=== PATIENT | female | born 2000 | race Caucasian/White ===

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

== ENCOUNTER 2021-02-19 12:50 | Emergency (ER) | payer OTHER, SELFPAY ==
[2021-02-19 14:58] VITALS: BP 00/00; PULSE 0; RESP 0; TEMP -17.7; TEMP 0
== END 2021-02-19 15:10 | disposition left against medical advice (07) ==
LOC: UTC 12:53
PROVIDERS: Emergency Provider Nurse Practitioner Family; PCP Nurse Practitioner Family
DX: Z53.21 Procedure and treatment not carried out due to patient leaving prior to being seen by health care provider (principal)

== ENCOUNTER 2021-05-19 17:39 | Emergency (ER) | payer OTHER, SELFPAY ==
[2021-05-19 18:39] VITALS: BP 130/85; PULSE 76; RESP 16; TEMP 36.8; O2SAT 96; BMI 38.2
--- NOTE | 2021-05-19 18:58 | HMH.EDUTC ---
[facility] [place] Impression: Viral syndrome, Viral pharyngitis Disposition: Home, Self-Care Condition on Discharge: Good Instructions: DI for COVID-19 (Suspected or Confirmed ), Preventing the Spread of Coronavirus Discharge Instructions Additional Instructions: Drink plenty of fluids. Take tylenol or ibuprofen for pain or fever. Take the medications as directed. Follow up with your regular doctor. GO TO THE ER FOR ANY WORSENING SYMPTOMS Quarantine until you know the results of your covid-19 test. Notify your school or workplace of your results and follow their instructions regarding return to work/school. Prescriptions: Brompheniramine/Pseudoephed/Dm [Bromfed Dm Cough Syrup] 5 ml PO Q6HP PRN #240 ml PRN Reason: Cough Transmission Status: Received by [facility] Ondansetron [Zofran 4mg ODT] 4 mg PO Q8HP PRN #20 tab PRN Reason: Nausea Transmission Status: Received by [facility] Referrals: Jon Galan APRN [Primary Care Provider] - Forms: Work/School Release Time of Disposition: 19:12 Medical Decision Making - Medical Records Medical records reviewed: No: I reviewed the patient's medical records. - Hang Inquiry Pt receiving controlled substance: No Vital Signs: 05/19/21 18:39 Temperature 98.2 F Temperature Source Oral Pulse Rate [Left] 76 Respiratory Rate 16 Blood Pressure [Right Arm] 130/85 Blood Pressure Mean [Right Arm] 100 02 Sat by Pulse Oximetry 96 - Lab Data Lab results reviewed: Yes: I reviewed the patient's lab results. Orders (Tests/Meds): ORDERS Category Date Time Status Covid-19 Nasal PCR ([facility]) Routine Lab 05/19/21 18:38 [place] [facility] [place] - General Stated complaint: covid test/treated for symptoms Time Seen by Provider: 05/19/21 18:58 Mode of Arrival: Ambulatory Source of Information: Patient Limitations: No Limitations Description of Symptoms (Recalled from Triage Doc. by RN): pt c/o a sore throat, cough, stomach ache and myalgia. x2 days HEENT Symptoms (Recalled from RN notes): Yes (sore throat) Resp Symptoms (Recalled from RN notes): Yes (cough) Skin Symptoms (Recalled from RN notes): No MS Symptoms (Recalled from RN notes): No Functional Status (Recalled from RN notes): wnl - History of Present Illness Provider Complaint: She states that for the past 2 days she has had chills, body aches, nausea, diarrhea, and she has felt bad. She was exposed to covid-19 about 5 days ago. - Related Data Previous Rx's Medication Instructions Recorded norgestimate 0.25 mg-ethinyl 1 tab PO DAILY #28 tab 12/25/20 estradiol 35 mcg tablet Brompheniramine/Pseudoephed/Dm 5 ml PO Q6HP PRN #240 ml 05/19/21 [Bromfed Dm Cough Syrup] Ondansetron [Zofran 4mg ODT] 4 mg PO Q8HP PRN #20 tab 05/19/21 Allergies Allergy/AdvReac Type Severity Reaction Status Date / Time No Known Allergies Allergy Verified 12/25/20 11:09 - Worker's Comp Is this a Worker's Comp case?: No [facility] History - Hepatitis A Screen Drug use history?: No High risk sexual behaviors?: No History of sexually transmitted infection?: No Currently employed?: No Childcare worker?: No Do you have indoor plumbing?: Yes Do you have electricity?: Yes Attestation statement:: This patient has been screened for Hepatitis A risk factors. I have reviewed the patient's past medical history: Yes Medical History: Reports:: Anxiety, Depression Denies:: Cancer, Diabetes Mellitus Type 1, Diabetes Mellitus Type 2, MRSA Other Medical History: Reports: Other Comment: PCOS Laterality Cases: Bilateral: Tonsillectomy Amputation: No Fractures: Yes (broken toe) Comment: toe fracture - Social History Smoking Status: Current every day smoker Tobacco Type: cigarettes # Packs/Day (cigarettes): 1 Alcohol Intake: never Substance Use Type: marijuana Occupational Status: employed Housing: house Household Members: family - Psychiatric History Pschychiatri
[2021-05-19 19:54] VITALS: BP 130/85; PULSE 76; RESP 16; TEMP 36.8
== END 2021-05-19 19:55 | disposition home or self-care (01) ==
PROVIDERS: Emergency Provider Nurse Practitioner Family; PCP Nurse Practitioner Family
DX: U07.1 COVID-19 (principal); J02.9 Acute pharyngitis, unspecified; F41.8 Other specified anxiety disorders; F17.210 Nicotine dependence, cigarettes, uncomplicated
CPT/HCPCS: 99202; C9803; G0463; U0003; U0005

== ENCOUNTER → 2021-05-25 14:42 | Outpatient (CLI) | payer OTHER, SELFPAY | PROVIDERS: PCP Nurse Practitioner Family; Visit Provider Nurse Practitioner Family | DX: U07.1 COVID-19 (principal) | CPT/HCPCS: C9803; U0003; U0005 ==

== ENCOUNTER 2021-08-20 11:37 | Emergency (ER) | payer OTHER, SELFPAY ==
[2021-08-20 12:56] VITALS: BP 150/66; PULSE 50; RESP 16; TEMP 36.7; O2SAT 100; BMI 46.9
--- NOTE | 2021-08-20 13:05 | HMH.EDUTC ---
[facility] [place] Clinical Impression: Right lower quadrant abdominal pain Disposition: Still a Patient Condition on Discharge: Fair Referrals: Jon Galan APRN [Primary Care Provider] - Medical Decision Making - Medical Records Medical records reviewed: No: I reviewed the patient's medical records. - Hang Inquiry Pt receiving controlled substance: No Vital Signs: 08/20/21 12:56 Temperature 98.1 F Temperature Source Oral Pulse Rate [Left] 50 L Respiratory Rate 16 Blood Pressure [Right Arm] 150/66 H Blood Pressure Mean [Right Arm] 94 02 Sat by Pulse Oximetry 100 [facility] [place] - General Stated complaint: vomiting, stomach pains Time Seen by Provider: 08/20/21 13:05 Mode of Arrival: Ambulatory Source of Information: Patient Limitations: No Limitations Description of Symptoms (Recalled from Triage Doc. by RN): pt c/o pain in the right lower abdomen. she states that she is puking up clear liquids. HEENT Symptoms (Recalled from RN notes): No Resp Symptoms (Recalled from RN notes): No Skin Symptoms (Recalled from RN notes): No MS Symptoms (Recalled from RN notes): No Functional Status (Recalled from RN notes): wnl - History of Present Illness Provider Complaint: She c/o right lower quadrant abdominal pain since yesterday. She has had n/v also. Her appetite has been poor. - Related Data Previous Rx's Medication Instructions Recorded norgestimate 0.25 mg-ethinyl 1 tab PO DAILY #28 tab 12/25/20 estradiol 35 mcg tablet Brompheniramine/Pseudoephed/Dm 5 ml PO Q6HP PRN #240 ml 05/19/21 [Bromfed Dm Cough Syrup] Ondansetron [Zofran 4mg ODT] 4 mg PO Q8HP PRN #20 tab 05/19/21 Allergies Allergy/AdvReac Type Severity Reaction Status Date / Time No Known Allergies Allergy Verified 08/20/21 13:01 - Worker's Comp Is this a Worker's Comp case?: No [facility] History - Hepatitis A Screen Attestation statement:: This patient has been screened for Hepatitis A risk factors. I have reviewed the patient's past medical history: Yes Medical History: Reports:: Anxiety, Depression Denies:: Cancer, Diabetes Mellitus Type 1, Diabetes Mellitus Type 2, MRSA Other Medical History: Reports: Other Comment: PCOS Laterality Cases: Bilateral: Tonsillectomy Amputation: No Fractures: Yes (broken toe) Comment: toe fracture - Social History Smoking Status: Current every day smoker Tobacco Type: cigarettes # Packs/Day (cigarettes): 1 Alcohol Intake: never Substance Use Type: marijuana Occupational Status: employed Housing: house Household Members: family - Psychiatric History Pschychiatric History:: Reports:: Anxiety, Depression Family Hx:: Cancer, Diabetes, Hypertension, Thyroid Disorder ROS Obtained: Yes All systems reviewed & no additional complaints - Constitutional Constitutional: Reports as per HPI - Eyes Eyes: Denies eye discharge - ENT Ears, Nose, Mouth, and Throat: Reports as per HPI, Denies dizziness, Denies otalgia, Denies sore throat - Cardiovascular Cardiovascular: Denies chest pain - Respiratory Respiratory: Denies chest congestion, Denies cough - Gastrointestinal Gastrointestingal: Reports: as per HPI - Genitourinary Female Genitourinary: Denies dysuria, Denies urinary frequency, Denies urinary incontinence, Denies urinary hesitancy, Denies urinary urgency - Musculoskeletal Musculoskeletal: Denies back pain - Integumentary/Breasts Skin/Breast: Denies rash Physical Exam - General General appearance: alert, in no apparent distress - Head Head exam: atraumatic, normocephalic, normal inspection - Eye Eye exam: Present: normal appearance, PERRL, EOMI - ENT ENT exam: Present: normal exam, normal oropharynx, mucous membranes moist, TM's normal bilaterally, normal external ear exam - Neck Neck exam: Present: normal inspection, full ROM, trachea midline. Absent: meningismus, lymphadenopathy - Chest Chest inspection: Present: normal inspection, symmetric chest
[2021-08-20 13:58] VITALS: BP 128/77; PULSE 66; RESP 16; TEMP 36.4; O2SAT 100; BMI 46.5
[2021-08-20 14:02] LABS: Urine Pregnancy, HCG Qual. Negative (Negative)
--- NOTE | 2021-08-20 14:02 | HMH.EDGENADL ---
ED Disposition Clinical Impression: Right lower quadrant abdominal pain Disposition: Still a Patient Condition on Discharge: Good Instructions: Acute Abdominal Pain, DI for Acute Abdominal Pain Additional Instructions: follow up PCP return here for worse or any concerns Referrals: Jon Galan APRN [Primary Care Provider] - - Critical Care Critical Care Time: No Attestation: On 08/20/21, the high probability of a clinically significant, sudden or life threatening deterioration of the following system(s) required my full and direct attention, intervention and personal management. The time I documented below is in addition to time spent performing reported procedures but includes the following listed in this critical care notation. Medical Decision Making - Medical Records Medical records reviewed: Yes: I reviewed the patient's medical records. - Hang Inquiry Pt receiving controlled substance: No Vital Signs: 08/20/21 12:56 08/20/21 13:58 Temperature 98.1 F 97.6 F Temperature Source Oral Oral Pulse Rate [Left] 50 L 66 Respiratory Rate 16 16 Blood Pressure [Right Arm] 150/66 H 128/77 Blood Pressure Mean [Right Arm] 94 94 Blood Pressure Source [Right Arm] Automatic Cuff Blood Pressure Position [Right Arm] Sitting 02 Sat by Pulse Oximetry 100 100 Oxygen Delivery Method Room Air - Lab Data Lab Results 08/20/21 12:51: Urine HCG, Qual Negative 08/20/21 12:51: Urine Color Yellow, Urine Appearance Cloudy, Urine pH 6.0, Ur Specific [place] 1.025, Urine Protein Trace, Urine Glucose (UA) Negative, Urine Ketones Negative, Urine Blood 3+, Urine Nitrate Negative, Urine Bilirubin Negative, Urine Urobilinogen 0.2, Ur Leukocyte Esterase 1+ A, Urine RBC 20-50, Urine WBC 3-5, Ur Squamous Epith Cells 3-5, Urine Bacteria 1+ 08/20/21 14:09: Urine Color Red, Urine Appearance Cloudy, Urine pH 5.5, Ur Specific [place] 1.025, Urine Protein 1+, Urine Glucose (UA) Negative, Urine Ketones Negative, Urine Blood 3+, Urine Nitrate Negative, Urine Bilirubin Negative, Urine Urobilinogen 0.2, Ur Leukocyte Esterase Trace 08/20/21 14:14: WBC 10.9, RBC 4.41, Hgb 11.9 L, Hct 37.0, MCV 83.9, MCH 26.9 L, MCHC 32.1, RDW 15.5, Plt Count 324, MPV 7.5, Neut % (Auto) 76.5, Lymph % (Auto) 17.1, [place] % (Auto) 4.5, Eos % (Auto) 1.3, Baso % (Auto) 0.6, Neut # (Auto) 8.4 H, Lymph # (Auto) 1.9, [place] # (Auto) 0.5, Eos # (Auto) 0.1, Baso # (Auto) 0.1 08/20/21 14:14: Sodium 136, Potassium 3.8, Chloride 103, Carbon Dioxide 27, Anion Gap 9.8, BUN 10, Creatinine 0.60, Estimated Creat Clear 135, Estimated GFR 127, Est GFR ( Amer) 154, Glucose 94, Calcium 9.1, Total Bilirubin 0.7, AST 21, ALT 17, Alkaline Phosphatase 58, Total Protein 7.2, Albumin 4.2, Globulin 3.0, Albumin/Globulin Ratio 1.4 Result diagrams: 08/20/21 14:14 08/20/21 14:14 Orders (Tests/Meds): ED MEDICATIONS Generic Name Dose Route Start Last Admin Trade Name Freq PRN Reason Stop Dose Admin Lactated Ringer's 1,000 mls @ 500 mls/hr 08/20/21 14:15 08/20/21 14:19 Lactated Ringer's 1000 Ml Bag IV 08/20/21 16:14 500 mls/hr .Q2H BEA Administration Sodium Chloride 10 ml 08/20/21 14:33 Sodium Chloride 0.9% 10ml Flush Syringe IV 09/19/21 14:32 NEEDED PRN Maintain IV Site Discontinued Medications Generic Name Dose Route Start Last Admin Trade Name Freq PRN Reason Stop Dose Admin Iopamidol 75 ml 08/20/21 14:45 08/20/21 14:45 Iopamidol-370 (76%);100ml Bottle IV 08/20/21 14:46 75 ml ONCE ONE Administration Ondansetron HCl 8 mg 08/20/21 14:01 08/20/21 14:19 Ondansetron 4mg/2ml Vial IV 08/20/21 14:02 8 mg ONCE ONE Administration Sodium Chloride 10 ml 08/20/21 14:45 08/20/21 14:45 Sodium Chloride 0.9% 10ml Syr (Rad Only) IV 08/20/21 14:46 10 ml ONCE ONE Administration ORDERS Category Date Time Status Urine Culture Stat Micro 08/20/21 12:51 Received Medical Decision Narrative: 4pm reeval, vss, appears we
[2021-08-20 14:05] LABS: Microscopic, Urine URINE MICROSCOPIC (MICROSCOPIC)
[2021-08-20 14:07] LABS: Appearance,Urine CLOUDY (Clear); Bilirubin,Urine Negative (Negative); Blood, Urine 3+ (Negative); Color,Urine YELLOW (Yellow); Glucose,Urine (UA) Negative (Negative); Ketones,Urine Negative (Negative); Leukocyte Esterase,Urine 1+ (Negative); Nitrate,Urine Negative (Negative); Protein,Urine TRACE (Negative); Specific Gravity, Urine 1.025 (1.005-1.030); Urobilinogen,Urine 0.2 EU/dl (0.2)
[2021-08-20 14:10] LABS: Apearance,Urine Cloudy (Clear); Color,Urine Red (Yellow); PH,Urine 5.5 (5.0-8.5); Specific Gravity, Urine 1.025 (1.005-1.030)
[2021-08-20 14:11] LABS: Bilirubin,Urine Negative (Negative); Blood, Urine 3+ (Negative); Glucose,Urine (UA) Negative (Negative); Ketones,Urine Negative (Negative); Protein,Urine 1+ (Negative); Urobilinogen,Urine 0.2 EU/dl (0.2)
[2021-08-20 14:12] LABS: UTC Leukocyte Esterase,Urine Trace (Negative); UTC Nitrate,Urine Negative (Negative)
[2021-08-20 14:19] LABS: Bacteria,Urine 1+ /lpf; RBC,Urine 20-50 #/hpf (0-3)
--- NOTE | 2021-08-20 14:21 | CT_ITS ---
FINAL REPORT CLINICAL HISTORY: rlq abd pain, n/v FINDINGS: CT OF THE ABDOMEN AND PELVIS WITH CONTRAST Axial CT images of the abdomen and pelvis were obtained after the administration of oral and iv contrast. Coronal reformatted images were also obtained and reviewed.This study was performed with techniques to keep radiation doses as low as reasonably achievable (ALARA). Individualized dose reduction techniques using automated exposure control or adjustment of mA and/or kV according to the patient''s size were employed. Abdomen: The lung bases are clear. The heart is normal in size. The liver has an unremarkable appearance, without evidence of mass or biliary ductal dilatation. The gallbladder is present. The spleen is unremarkable. No adrenal mass is present. The pancreas has an unremarkable appearance. The kidneys are normal, without evidence of mass or hydronephrosis. The aorta is normal in caliber. There is no free fluid or adenopathy. No mass or abnormal fluid collection is seen. Pelvis: The appendix is normal. The urinary bladder is unremarkable. No inflammatory process is seen. There is no evidence of mass or adenopathy. There is no evidence of bowel obstruction. IMPRESSION: No evidence of acute intra-abdominal process. Reviewed, Interpreted and Dictated by Phuc Abdalla III, MD Transcribed by Davis Lisa Authenticated by Phuc Abdalla III, MD on 08/20/2021 03:39:10 PM [facility]
[2021-08-20 14:25] LABS: Basophils # 0.1 K/mm3 (0-0.2); Basophils % 0.6 % (0.1-2.0); Eosinophils # 0.1 K/mm3 (0.0-0.4); Eosinophils % 1.3 % (0.1-12.0); Hemoglobin 11.9 g/dL (12.2-16.2); Lymphocytes # 1.9 K/mm3 (0.7-4.5); Lymphocytes % 17.1 % (10-50); Mean Corpuscular HGB Conc 32.1 g/dL (31.8-35.4); Mean Corpuscular Hemoglobin 26.9 pg (27.0-31.2); Mean Corpuscular Volume 83.9 fl (81-99); Mean Platelet Volume 7.5 fl (7.4-10.4); Monocytes # 0.5 K/mm3 (0.1-1.0); Monocytes % 4.5 % (1.7-9.3); Neutrophils # 8.4 K/mm3 (1.8-7.8); Neutrophils % 76.5 % (37.0-80.0); Platelet Count 324 K/mm3 (142-424); Red Blood Count 4.41 M/mm3 (4.20-5.40); Red Cell Distribution Width 15.5 % (11.5-17.5); White Blood Count 10.9 K/mm3 (4.5-13.0)
[2021-08-20 14:29] LABS: Alanine Aminotransferase 17 U/L (12-78); Albumin Level 4.2 g/dl (3.5-5.0); Albumin/Globulin Ratio 1.4 (1.1-1.8); Alkaline Phosphatase 58 U/L (38-126); Anion Gap 9.8 mEq/L (5-15); Aspartate Amino Transferase 21 U/L (14-36); Bilirubin,Total 0.7 mg/dl (0.2-1.3); Blood Urea Nitrogen 10 mg/dl (7-17); Calcium 9.1 mg/dl (8.4-10.2); Carbon Dioxide 27 mmol/L (22.0-30.0); Chloride 103 mmol/L (98-107); Creatinine Clearance Estimated 135 mL/min (50-200); Estimated Glomerular Filt Rate 127 ml/min (>60); GFR (African American) 154 ML/MIN (>60); Glucose 94 mg/dl (74-100); Potassium 3.8 mmoL/L (3.5-5.1); Sodium 136 mmol/L (136-145); Total Protein,Serum 7.2 g/dl (6.3-8.2)
--- NOTE | 2021-08-20 14:33 | PC.NURSE ---
pt to CT via wheelchair
[2021-08-20 16:09] VITALS: BP 135/72; PULSE 63; RESP 16; TEMP 36.4; O2SAT 98
== END 2021-08-20 16:09 | disposition still patient (30) ==
LOC: UTC 13:47 → ER 13:52
PROVIDERS: Nurse Practitioner Family; Emergency Provider Emergency Medicine; PCP Nurse Practitioner Family
DX: R10.31 Right lower quadrant pain (principal); R11.2 Nausea with vomiting, unspecified; R19.7 Diarrhea, unspecified; E28.2 Polycystic ovarian syndrome; F32.A Depression, unspecified; F41.9 Anxiety disorder, unspecified; Z82.49 Family history of ischemic heart disease and other diseases of the circulatory system; Z80.9 Family history of malignant neoplasm, unspecified; Z83.3 Family history of diabetes mellitus; Z83.49 Family history of other endocrine, nutritional and metabolic diseases; Z79.890 Hormone replacement therapy
CPT/HCPCS: 74177; 80053; 81001; 81003; 81025; 85025; 87086; 96361; 96374; 96375; 99285; J2405; Q9967

== ENCOUNTER 2021-09-14 16:45 | Emergency (ER) | payer OTHER, SELFPAY ==
[2021-09-14 16:55] VITALS: BP 162/80; PULSE 66; RESP 18; TEMP 36.7; O2SAT 100; BMI 46.5
--- NOTE | 2021-09-14 17:09 | HMH.EDUTC ---
[facility] [place] Clinical Impression: Amenorrhea Disposition: Home, Self-Care Condition on Discharge: Good Instructions: DI for Amenorrhea Additional Instructions: Follow up with PCP next week for further evaluation Referrals: Jon Galan APRN [Primary Care Provider] - Time of Disposition: 18:44 Medical Decision Making - Hang Inquiry Pt receiving controlled substance: No Vital Signs: 09/14/21 16:55 Temperature 98.0 F Temperature Source Oral Pulse Rate [Right Brachial] 66 Respiratory Rate 18 Blood Pressure [Right Arm] 162/80 H Blood Pressure Mean [Right Arm] 107 Blood Pressure Source [Right Arm] Automatic Cuff Blood Pressure Position [Right Arm] Sitting 02 Sat by Pulse Oximetry 100 Oxygen Delivery Method Room Air - Lab Data Lab results reviewed: Yes: I reviewed the patient's lab results. Lab Results 09/14/21 17:30: HCG, Quant < 2 [facility] [place] HPI - General Stated complaint: nausea, possibly Time Seen by Provider: 09/14/21 17:10 Mode of Arrival: Ambulatory Source of Information: Patient Limitations: No Limitations Description of Symptoms (Recalled from Triage Doc. by RN): PATIENT C/O VOMITING AND PERIOD IS 3 DAYS LATE. SHE REPORTS A POSITIVE AND A NEGATIVE AT HOME TEST HEENT Symptoms (Recalled from RN notes): No Resp Symptoms (Recalled from RN notes): No Skin Symptoms (Recalled from RN notes): No MS Symptoms (Recalled from RN notes): No Functional Status (Recalled from RN notes): WNL - History of Present Illness Provider Complaint: Patient states her period is 3 days late. She has had nausea, vomiting, urinary frequency, fatigue, breast tenderness for 2 weeks. She took a home test a few days before she missed her period and it was positive, but then she took another one a few days later and it was negative. She has never been before. Onset (ago): day(s) (3) Relieving factors: none Exacerbating factors: none Treatments prior to arrival: none - Related Data Previous Rx's Medication Instructions Recorded norgestimate 0.25 mg-ethinyl 1 tab PO DAILY #28 tab 12/25/20 estradiol 35 mcg tablet Brompheniramine/Pseudoephed/Dm 5 ml PO Q6HP PRN #240 ml 05/19/21 [Bromfed Dm Cough Syrup] Ondansetron [Zofran 4mg ODT] 4 mg PO Q8HP PRN #20 tab 05/19/21 Allergies Allergy/AdvReac Type Severity Reaction Status Date / Time No Known Allergies Allergy Verified 08/20/21 13:01 - Worker's Comp Is this a Worker's Comp case?: No [facility] History - Hepatitis A Screen Attestation statement:: This patient has been screened for Hepatitis A risk factors. I have reviewed the patient's past medical history: Yes Medical History: Reports:: Anxiety, Depression Denies:: Cancer, Diabetes Mellitus Type 1, Diabetes Mellitus Type 2, MRSA Other Medical History: Reports: Other Comment: PCOS Laterality Cases: Bilateral: Tonsillectomy Amputation: No Fractures: Yes (broken toe) Comment: toe fracture - Social History Smoking Status: Current every day smoker Tobacco Type: cigarettes # Packs/Day (cigarettes): 1 Alcohol Intake: never Substance Use Type: marijuana Occupational Status: employed Housing: house Household Members: family - Psychiatric History Pschychiatric History:: Reports:: Anxiety, Depression Family Hx:: Cancer, Diabetes, Hypertension, Thyroid Disorder ROS Obtained: Yes All systems reviewed & no additional complaints - Constitutional Constitutional: Reports fatigue - Gastrointestinal Gastrointestingal: Reports: nausea, vomiting - Genitourinary Female Genitourinary: Reports urinary frequency - Integumentary/Breasts Skin/Breast: Reports breast pain Physical Exam - General General appearance: alert, in no apparent distress - Head Head exam: normocephalic - Eye Eye exam: Present: PERRL - ENT ENT exam: Present: normal oropharynx, TM's normal bilaterally - Neck Neck exam: Present: normal inspection. Absent: lymphadenopathy
[2021-09-14 18:37] LABS: HCG,Quantitative < 2 mIU/ml (0-5.42)
[2021-09-14 18:51] VITALS: BP 162/80; PULSE 66; RESP 18; TEMP 36.7; O2SAT 100
[2021-09-14 20:42] LABS: UTC Pregnancy Test, Urine Negative (Negative)
== END 2021-09-14 18:55 | disposition home or self-care (01) ==
PROVIDERS: Emergency Provider Physician Assistant; PCP Nurse Practitioner Family
DX: N91.2 Amenorrhea, unspecified (principal)
CPT/HCPCS: 81025; 84702; 99212; G0463

== ENCOUNTER 2021-10-22 15:44 | Emergency (ER) | payer OTHER, SELFPAY ==
[2021-10-22 15:50] VITALS: BP 152/103; PULSE 70; RESP 20; TEMP 36.7; O2SAT 98; BMI 43.7
--- NOTE | 2021-10-22 16:37 | HMH.EDUTC ---
[facility] [place] Dis[place] Clinical Impression: Sunburn Disposition: Home, Self-Care Condition on Discharge: Good Instructions: Sunburn, DI for Sunburn Additional Instructions: Over the counter Neosporin to area as directed on skin where you have the blisters Over the counter Benadryl may help with itching Follow up with your Family Doctor if no improvement or any worsening of symptoms Take medrol pack as prescribed Take Ibuprofen as directed for pain and discomfort Aloe to skin may help with iritation Lubricate the skin with aloe and lotion to help the skin keep from feeling dry Apply a moisturizer, lotion or gel. An aloe vera lotion or gel or calamine lotion can be soothing. Try cooling the product in the refrigerator before applying. Avoid products that contain alcohol. Drink extra water to help prevent dehydration Leave blisters alone. An intact blister can help the skin heal. If a blister does break, trim off the skin with a clean, small scissors. Gently clean the area with mild soap and water. Then apply an antibiotic ointment to the wound and cover it with a nonstick bandage. Protect yourself from further sun exposure while your skin heals from the sunburn. Prescriptions: methylPREDNISolone [Medrol 4mg tab] 4 mg PO DIRECTED #21 tab Transmission Status: Received by [id number] Referrals: Jon Galan APRN [Primary Care Provider] - As needed Time of Disposition: 16:54 Medical Decision Making - Hang Inquiry Pt receiving controlled substance: No Hang was queried for this patient: No Vital Signs: 10/22/21 15:50 Temperature 98.1 F Temperature Source Oral Pulse Rate [Right Brachial] 70 Respiratory Rate 20 Blood Pressure [Right Arm] 152/103 H Blood Pressure Mean [Right Arm] 119 Blood Pressure Source [Right Arm] Automatic Cuff Blood Pressure Position [Right Arm] Sitting 02 Sat by Pulse Oximetry 98 Oxygen Delivery Method Room Air [facility] [place] HPI - General Stated complaint: possible sun poison Time Seen by Provider: 10/22/21 16:37 Mode of Arrival: Ambulatory Source of Information: Patient Limitations: No Limitations Description of Symptoms (Recalled from Triage Doc. by RN): PATIENT C/O SUNBURN WITH BLISTERS TO BILATERAL ARMS, BACK AND CHEST SINCE THURSDAY HEENT Symptoms (Recalled from RN notes): No Resp Symptoms (Recalled from RN notes): No Skin Symptoms (Recalled from RN notes): Yes MS Symptoms (Recalled from RN notes): No Functional Status (Recalled from RN notes): WNL - History of Present Illness Provider Complaint: Patient states that she was out in the sun over the weekend and she has noticed she has some small fluid filled blisters on her chest, arms and back State that her skin is very tender and she was worried she may have got sun poisoning - Related Data Previous Rx's Medication Instructions Recorded norgestimate 0.25 mg-ethinyl 1 tab PO DAILY #28 tab 12/25/20 estradiol 35 mcg tablet Brompheniramine/Pseudoephed/Dm 5 ml PO Q6HP PRN #240 ml 05/19/21 [Bromfed Dm Cough Syrup] Ondansetron [Zofran 4mg ODT] 4 mg PO Q8HP PRN #20 tab 05/19/21 methylPREDNISolone [Medrol 4mg 4 mg PO DIRECTED #21 tab 10/22/21 tab] Allergies Allergy/AdvReac Type Severity Reaction Status Date / Time No Known Allergies Allergy Verified 08/20/21 13:01 - Worker's Comp Is this a Worker's Comp case?: No [facility] History - Hepatitis A Screen Attestation statement:: This patient has been screened for Hepatitis A risk factors. I have reviewed the patient's past medical history: Yes Medical History: Reports:: Anxiety, Depression Denies:: Cancer, Diabetes Mellitus Type 1, Diabetes Mellitus Type 2, MRSA Other Medical History: Reports: Other Comment: PCOS Laterality Cases: Bilateral: Tonsillectomy Amputation: No Fractures: Yes (broken toe) Comment: toe fracture - Social History Smoking Status: Current every day smoker Tobacco Type: cigarettes # Packs/Day (cigarettes): 1 Alcohol
[2021-10-22 16:50] VITALS: BP 152/103; PULSE 70; RESP 20; TEMP 36.7; O2SAT 98
== END 2021-10-22 16:54 | disposition home or self-care (01) ==
PROVIDERS: Emergency Provider Nurse Practitioner; PCP Nurse Practitioner Family
DX: T22.291A Burn of second degree of multiple sites of right shoulder and upper limb, except wrist and hand, initial encounter; T22.292A Burn of second degree of multiple sites of left shoulder and upper limb, except wrist and hand, initial encounter; T21.24XA Burn of second degree of lower back, initial encounter; T21.21XA Burn of second degree of chest wall, initial encounter; T31.11 Burns involving 10-19% of body surface with 10-19% third degree burns
CPT/HCPCS: 99212; G0463

== ENCOUNTER 2021-11-16 17:29 | Emergency (ER) | payer OTHER, SELFPAY ==
--- NOTE | 2021-11-16 17:46 | HMH.EDUTC ---
[facility] [place] Clinical Impression: Need for Tdap vaccination Dog bite of right thigh Qualifiers: Encounter type: initial encounter Qualified Code(s): S71.151A - Open bite, right thigh, initial encounter Disposition: Home, Self-Care Condition on Discharge: Good Instructions: DI for Animal Bites, Tetanus, Diphtheria, Pertussis (Tdap) Vaccine, DI for Dog Bite Additional Instructions: Keep the wounds clean and dry. Follow up with your regular doctor. Take the antibiotics as directed and apply the topical antibiotics as directed. Make sure you stay in contact with the health department regarding the health of the dog. Watch the puncture wounds for signs of worsening infection, such as worsening redness, drainage, swelling, etc. GO TO THE ER FOR ANY WORSENING SYMPTOMS Prescriptions: Amoxicillin/Potassium Clav [Amox-Clav 875-125 mg Tablet] 1 tab PO BID #20 tab Transmission Status: Received by [id number] Mupirocin [Bactroban 2% Ointment 22gm tube] 1 applicatio TP TID 7 Days #1 gm Transmission Status: Received by [id number] Referrals: Jon Galan APRN [Primary Care Provider] - Time of Disposition: 18:29 Medical Decision Making - Medical Records Medical records reviewed: No: I reviewed the patient's medical records. - Hang Inquiry Pt receiving controlled substance: No Vital Signs: 11/16/21 17:53 11/16/21 18:39 Temperature 98.2 F 98.2 F Temperature Source Oral Pulse Rate 77 Pulse Rate [Left] 77 Respiratory Rate 17 17 Blood Pressure 141/78 H Blood Pressure [Right Arm] 141/78 H Blood Pressure Mean [Right Arm] 99 02 Sat by Pulse Oximetry 95 Orders (Tests/Meds): ED MEDICATIONS Discontinued Medications Generic Name Dose Route Start Last Admin Trade Name Freq PRN Reason Stop Dose Admin Tetanus/Diphtheria Toxoids 0.5 ml 11/16/21 18:37 11/16/21 17:55 Tetanus-Diphth Toxoid, Adult 0.5ml Syr IM 11/16/21 18:38 0.5 ml .ONCE ONE Administration [facility] [place] - General Stated complaint: AO 11/16@1700 bit by dog R Leg Time Seen by Provider: 11/16/21 17:46 - History of Present Illness Provider Complaint: she states that she was bit by her neighbor's egyptian bull dog this evening about 30 minutes ago on her right upper thigh. She has 3 small puncture wounds on her right upper thigh that are surrounded by an area of bruising. She denies any other injury. Her tetanus immunization is not up to date. - Related Data Previous Rx's Medication Instructions Recorded norgestimate 0.25 mg-ethinyl 1 tab PO DAILY #28 tab 12/25/20 estradiol 35 mcg tablet Brompheniramine/Pseudoephed/Dm 5 ml PO Q6HP PRN #240 ml 05/19/21 [Bromfed Dm Cough Syrup] Ondansetron [Zofran 4mg ODT] 4 mg PO Q8HP PRN #20 tab 05/19/21 methylPREDNISolone [Medrol 4mg 4 mg PO DIRECTED #21 tab 10/22/21 tab] Amoxicillin/Potassium Clav 1 tab PO BID #20 tab 11/16/21 [Amox-Clav 875-125 mg Tablet] Mupirocin [Bactroban 2% Ointment 1 applicatio TP TID 7 Days #1 gm 11/16/21 22gm tube] Allergies Allergy/AdvReac Type Severity Reaction Status Date / Time No Known Allergies Allergy Verified 11/16/21 17:56 [facility] History - Hepatitis A Screen Attestation statement:: This patient has been screened for Hepatitis A risk factors. I have reviewed the patient's past medical history: Yes Medical History: Reports:: Anxiety, Depression Denies:: Cancer, Diabetes Mellitus Type 1, Diabetes Mellitus Type 2, MRSA Other Medical History: Reports: Other Comment: PCOS Laterality Cases: Bilateral: Tonsillectomy Amputation: No Fractures: Yes (broken toe) Comment: toe fracture - Social History Smoking Status: Current every day smoker Tobacco Type: cigarettes # Packs/Day (cigarettes): 1 Alcohol Intake: never Substance Use Type: marijuana Occupational Status: other Housing: house Household Members: family - Psychiatric History Pschychiatric History:: Rep
[2021-11-16 17:53] VITALS: BP 141/78; PULSE 77; RESP 17; TEMP 36.8; O2SAT 95; BMI 44.9
[2021-11-16 18:39] VITALS: BP 141/78; PULSE 77; RESP 17; TEMP 36.8
== END 2021-11-16 18:40 | disposition home or self-care (01) ==
PROVIDERS: Emergency Provider Nurse Practitioner Family; PCP Nurse Practitioner Family
DX: S71.151A Open bite, right thigh, initial encounter (principal); W54.0XXA Bitten by dog, initial encounter; Z23 Encounter for immunization
CPT/HCPCS: 90471; 90714; 99212; G0463

== ENCOUNTER 2022-01-16 12:27 | Emergency (ER) | payer OTHER, SELFPAY ==
[2022-01-16 13:14] VITALS: BP 125/68; PULSE 60; RESP 17; TEMP 36.8; O2SAT 100; BMI 43.2
[2022-01-16 13:25] LABS: UTC Strep Screen (Rapid) Negative (Negative)
--- NOTE | 2022-01-16 13:26 | EXP.UTC ---
Discharge Plan Disposition Patient Disposition: Home, Self-Care Condition: Good Prescriptions Prescriptions: New ltjbbqeigjubfua-mtqymmczp-TN [Bromfed DM] 2-30-10 mg/5 mL Syrup 5 ml PO Q6H PRN (Reason: Cough) Qty: 240 0RF amoxicillin [amoxicillin] 500 mg tablet 500 mg PO TID 10 Days Qty: 30 0RF methylprednisolone 4 mg Tablets,Dose Pack 4 mg PO DIRECTED Qty: 21 0RF No Action norgestimate-ethinyl estradiol [Sprintec (28)] 0.25-35 mg-mcg tablet 1 tab PO DAILY Qty: 28 11RF clindamycin HCl 300 mg capsule 300 mg PO TID Qty: 30 0RF methylprednisolone 4 MG tablet 4 mg PO DIRECTED Qty: 21 0RF Rx Instructions: Take as directed on package instructions fnaywumhxyysrnb-ehownrjwp-MF 118 ML syrup 5 ml PO Q6HP PRN (Reason: Cough) Qty: 240 0RF ondansetron 4 MG tablet,disintegrating 4 mg PO Q8HP PRN (Reason: Nausea) Qty: 20 0RF mupirocin 22 GM ointment 1 applicatio TP TID 7 Days Qty: 1 0RF amoxicillin-pot clavulanate 1 EACH tablet 1 tab PO BID Qty: 20 0RF Referrals Follow up/Referrals: Jon Galan APRN [Primary Care Provider] - See instructions Activity Restrictions/Add. Instructions Additional Instructions/Restrictions: Drink plenty of fluids. Take tylenol or ibuprofen for pain or fever. Take the medications as directed. Follow up with your regular doctor. GO TO THE ER FOR ANY WORSENING SYMPTOMS Throw your tooth brush away and get a new one. Clinical Impressions Clinical Impression: Pharyngitis Stand Alone Forms Stand Alone Forms: Work/School Release Instructions Patient Instructions: Strep Throat Discharge ED Provider: Quentin Bar [facility] General Stated complaint: Sore throat, ear pain, head congestion Mode of Arrival: Ambulatory Source of Information: Patient Time Seen by Provider: 01/16/22 13:26 Description of Symptoms (Recalled from Triage Doc. by RN): SORE THROAT, CONGESTION AND RIGHT EAR PAIN HEENT Symptoms (Recalled from RN notes): Yes Resp Symptoms (Recalled from RN notes): No Skin Symptoms (Recalled from RN notes): No MS Symptoms (Recalled from RN notes): No Functional Status (Recalled from RN notes): NA History of Present Illness Provider Complaint: She c/o sore throat and left ear pain for the past 2 days. Related Data Previous Rx's Medication Instructions Recorded norgestimate 0.25 mg-ethinyl 1 tab PO DAILY #28 tabs 12/25/20 estradiol 35 mcg tablet (Sprintec (28)) gakidstxbmoerer-ifmbxdzwkznzdvp-UD 5 ml PO Q6HP PRN Cough #240 mL 05/19/21 2 mg-30 mg-10 mg/5 mL oral syrup ondansetron 4 mg disintegrating 4 mg PO Q8HP PRN Nausea #20 tabs 05/19/21 tablet methylprednisolone 4 mg tablet 4 mg PO DIRECTED #21 tabs 10/22/21 amoxicillin 875 mg-potassium 1 tab PO BID #20 tabs 11/16/21 clavulanate 125 mg tablet mupirocin 2 % topical ointment 1 applicatio topical TID 7 days #1 11/16/21 g clindamycin HCl 300 mg capsule 300 mg PO TID #30 caps 11/19/21 amoxicillin 500 mg tablet 500 mg PO TID 10 days #30 tabs 01/16/22 cvvtjrvsazjyqqg-xnnjyqxfxbidciu-WE 5 ml PO Q6H PRN Cough #240 mL 01/16/22 2 mg-30 mg-10 mg/5 mL oral syrup (Bromfed DM) methylprednisolone 4 mg tablets in 4 mg PO DIRECTED #21 tabs 01/16/22 a dose pack Allergies Allergy/AdvReac Type Severity Reaction Status Date / Time No Known Allergies Allergy Verified 11/16/21 17:56 Worker's Comp Is this a Worker's Comp case?: No PFSH PFSH Social History Smoking Status: Current every day smoker tobacco type: cigarettes packs per day: 1 second hand exposure: No alcohol intake: never substance use type: marijuana current occupational status: other Travel in the last 8 weeks: None household members: family housing: house ROS Obtained: Yes All systems reviewed & no additional complaints except as documented Constitutional Constitutional: Reports chills and Reports feve
[2022-01-16 13:48] VITALS: BP 125/68; PULSE 60; RESP 17; TEMP 36.8; O2SAT 100
== END 2022-01-16 13:50 | disposition home or self-care (01) ==
PROVIDERS: Emergency Provider Nurse Practitioner Family; PCP Nurse Practitioner Family
DX: J02.9 Acute pharyngitis, unspecified (principal)
CPT/HCPCS: 87880; 99212; G0463

== ENCOUNTER 2022-02-06 10:32 | Emergency (ER) | payer OTHER, SELFPAY ==
[2022-02-06 11:00] VITALS: BP 147/74; PULSE 95; RESP 19; TEMP 37.2; O2SAT 98; BMI 41.6
[2022-02-06 11:11] LABS: UTC Influenza A Antigen Negative (Negative); UTC Influenza B Antigen Negative (Negative); UTC Strep Screen (Rapid) Negative (Negative)
--- NOTE | 2022-02-06 11:17 | EXP.UTC ---
Discharge Plan Disposition Patient Disposition: Home, Self-Care Condition: Good Prescriptions Prescriptions: New promethazine 12.5 mg tablet 12.5 mg PO TID PRN (Reason: nausea and vomiting) Qty: 9 0RF azithromycin [Zithromax Z-Kev] 250 mg tablet See Rx Instructions .ROUTE .COMPLEX 5 Days Qty: 6 0RF Rx Instructions: For 250 mg dose pack: take 500 mg today (day 1), then 250 mg for 4 days (days 2-5) No Action clindamycin HCl 300 mg capsule 300 mg PO TID Qty: 30 0RF methylprednisolone 4 MG tablet 4 mg PO DIRECTED Qty: 21 0RF Rx Instructions: Take as directed on package instructions hklhgsieubpefdc-azjviogwq-TB [Bromfed DM] 2-30-10 mg/5 mL Syrup 5 ml PO Q6H PRN (Reason: Cough) Qty: 240 0RF amoxicillin [amoxicillin] 500 mg tablet 500 mg PO TID 10 Days Qty: 30 0RF methylprednisolone 4 mg Tablets,Dose Pack 4 mg PO DIRECTED Qty: 21 0RF vemdoqlbbesnxoo-yhfzazmiv-HZ 118 ML syrup 5 ml PO Q6HP PRN (Reason: Cough) Qty: 240 0RF ondansetron 4 MG tablet,disintegrating 4 mg PO Q8HP PRN (Reason: Nausea) Qty: 20 0RF mupirocin 22 GM ointment 1 applicatio TP TID 7 Days Qty: 1 0RF amoxicillin-pot clavulanate 1 EACH tablet 1 tab PO BID Qty: 20 0RF norgestimate-ethinyl estradiol [Sprintec (28)] 0.25-35 mg-mcg tablet 1 tab PO DAILY Referrals Follow up/Referrals: Jon Galan APRN [Primary Care Provider] - See instructions Activity Restrictions/Add. Instructions Additional Instructions/Restrictions: *Monitor Temp, Over the counter Motrin or Tylenol as directed/as needed Tylenol every 4 hours and Motrin every 6 hours (as long as your family doctor has told you that you can take it) for fever or pain. and straight to ER if unable to lower temp less than 101.0 after medication given *Warm salt water gargles may help to soothe the throat *Throat Lozenges? *Warm fluids like tea with honey may help to soothe the throat? *Sleep elevated *Humidifier/Vaporizer Your throat swab was sent for culture. Those results are typically sent to your primary care. Be sure to follow up in 2-3 days with your family doctor/primary care physician if no improvement so they can review those result and treat if necessary. If you don?t have a primary care doctor, I recommend you get one but in the mean time, you will have to return to a walk in clinic Follow up IMMEDIATELY for new or worsening symptoms or no Noticeable improvement over the next 48-72 hours. 911 for difficulty breathing or swallowing You were tested for today for COVID19 your test result should be back in the next 24-48 hours, you may check your results on the [facility] [employer] [facility] Clinical Impressions Clinical Impression: Viral upper respiratory illness Discharge ED Provider: Jacqueline Aguirre [facility] [place] General Stated complaint: sore throat, congestion, body aches, vomiting Mode of Arrival: Ambulatory Source of Information: Patient Limitations: No Limitations Time Seen by Provider: 02/06/22 11:17 Description of Symptoms (Recalled from Triage Doc. by RN): pt comes in with c/o sore throat, cough, congestion, body aches, fever, nausea, vomitting, chillls, back pain since last night. HEENT Symptoms (Recalled from RN notes): Yes Resp Symptoms (Recalled from RN notes): Yes Skin Symptoms (Recalled from RN notes): No MS Symptoms (Recalled from RN notes): No Functional Status (Recalled from RN notes): n/a History of Present Illness Provider Complaint: Patient states that she has been having pain and pressure in her ears, sore throat, body aches, chills, N/V, and fever and cough States that last night it got worse and this morning when she got up she was still not feeling well so she came in to get checked out Related Data Home Medications Medication Instructions Recorded Confirmed norgestimate 0.25 mg-ethinyl 1 tab PO DAILY control 02/06/22 02/06/22 estradiol 35 mcg tablet (Sprintec (
[2022-02-06 12:11] VITALS: BP 147/74; PULSE 95; RESP 19; TEMP 37.2
[2022-02-06 12:32] LABS: Adenovirus,PCR Not Detected (NotDetected); Bordetella Pertussis Not Detected (NotDetected); Chlamydophila Pneumoniae, PCR Not Detected (NotDetected); Coronavirus 19, PCR Not Detected (NotDetected); Coronavirus 229E Not Detected (NotDetected); Coronavirus NL63 Not Detected (NotDetected); Coronavirus OC43 Not Detected (NotDetected); Coronovirus HKU1,PCR Not Detected (NotDetected); Human Metapneumovirus Not Detected (NotDetected); Influenza A, PCR Not Detected (NotDetected); Influenza AH1, 2009 Not Detected (NotDetected); Influenza AH1, PCR Not Detected (NotDetected); Influenza B, PCR Not Detected (NotDetected); Mycoplasma Pneumoniae, PCR Not Detected (NotDetected); Parainfluenza 1, PCR Not Detected (NotDetected); Parainfluenza 2, PCR Not Detected (NotDetected); Parainfluenza 3, PCR Not Detected (NotDetected); Parainfluenza 4, PCR Not Detected (NotDetected); Respiratory Syncytial Virus Not Detected (NotDetected); Rhinovirus/Enterovirus Not Detected (NotDetected)
[2022-02-06 15:49] LABS: Influenza AH3,PCR Detected (NotDetected)
== END 2022-02-06 12:12 | disposition home or self-care (01) ==
PROVIDERS: Emergency Provider Nurse Practitioner; PCP Nurse Practitioner Family
DX: J06.9 Acute upper respiratory infection, unspecified (principal); B34.8 Other viral infections of unspecified site
CPT/HCPCS: 87581; 87632; 87798; 87804; 87880; 99212; C9803; G0463; U0003; U0005

== ENCOUNTER 2022-10-16 15:20 | Emergency (ER) | payer OTHER, SELFPAY ==
[2022-10-16 15:35] VITALS: BP 136/88; PULSE 74; RESP 18; TEMP 36.9; O2SAT 98; BMI 41.3
--- NOTE | 2022-10-16 16:01 | EXP.UTC ---
Discharge Plan Disposition Patient Disposition: Home, Self-Care Condition: Good Prescriptions Prescriptions: No Action azithromycin 250 mg tablet See Rx Instructions PO .COMPLEX Qty: 6 0RF Rx Instructions: For 250 mg dose pack: take 500 mg today (day 1), then 250 mg for 4 days (days 2-5) PO Classic 28 mg iron- 800 mcg tablet 1 tab PO DAILY Qty: 30 11RF Referrals Follow up/Referrals: Provider,Referral, MD [Primary Care Provider] - See instructions Activity Restrictions/Add. Instructions Additional Instructions/Restrictions: Follow up with OBGYN for further evaluation and testing Return if needed Straight to ER if any life threatening symptoms Clinical Impressions Clinical Impression: Encounter for test with result negative Discharge ED Provider: Jacqueline Aguirre [facility] General Stated complaint: test Mode of Arrival: Ambulatory Source of Information: Patient Limitations: No Limitations Time Seen by Provider: 10/16/22 15:45 Description of Symptoms (Recalled from Triage Doc. by RN): PATIENT REQUESTING TEST. SHE REPORTS BEING LATE ON PERIOD X 2 WEEKS. ALSO REPORTS 2 NEGATIVE AT HOME TESTS HEENT Symptoms (Recalled from RN notes): No Resp Symptoms (Recalled from RN notes): No Skin Symptoms (Recalled from RN notes): No MS Symptoms (Recalled from RN notes): No Functional Status (Recalled from RN notes): WNL History of Present Illness Provider Complaint: Patient states that she started trying to get on the of this month States that her period was due on the but she hasnt started States that she has been having some nausea and feeling tired so she took 2 home test and they was negative so she wanted to come in and get checked here Related Data Previous Rx's Medication Instructions Recorded vits no.126-ferrous fum 1 tab PO DAILY #30 tabs 03/19/22 28 mg iron-folic acid 800 mcg tablet (Classic ) azithromycin 250 mg tablet See Rx Instructions PO .COMPLEX #6 07/01/22 tabs Allergies Allergy/AdvReac Type Severity Reaction Status Date / Time amoxicillin Allergy Verified 07/01/22 10:08 Worker's Comp Is this a Worker's Comp case?: No [facility] Disclaimer: The information contained in this section may have been updated after the patient was seen, as this information can be updated by other users. Medical History (Updated 10/16/22 @ 16:44 by Jacqueline Aguirre APRN) Acute bronchitis Amenorrhea Conjunctivitis Contact dermatitis Dog bite of right thigh Encounter for preconception consultation Gastroenteritis Muscle spasm of calf Nausea & vomiting Need for Tdap vaccination Patient left without being seen Pharyngitis Rash Right lower quadrant abdominal pain Sinusitis Sore throat Sore throat (viral) Sunburn URI (upper respiratory infection) Urticaria Viral pharyngitis Viral syndrome Viral upper respiratory illness Social History Smoking Status: Current every day smoker tobacco type: e-cigarettes second hand exposure: No alcohol intake: never substance use type: marijuana current occupational status: other Travel in the last 8 weeks: None household members: family housing: house ROS Obtained: Yes All systems reviewed & no additional complaints except as documented and Yes Systems reviewed as appropriate & no additional complaints except as documented Constitutional Constitutional: Reports system reviewed and no additional complaints, except as documented, Reports as per HPI and Reports fatigue ENT Ears, Nose, Mouth, and Throat: Reports system reviewed and no additional complaints, except as documented and Reports as per HPI Cardiovascular Cardiovascular: Reports system reviewed and no additional complaints, except as documented and Reports as per HPI Respiratory Respiratory: Reports system reviewed and no additional compla
[2022-10-16 16:37] LABS: HCG Qualitative, Serum Negative (Negative)
[2022-10-16 16:58] VITALS: BP 136/88; PULSE 74; RESP 18; TEMP 36.9; O2SAT 98
== END 2022-10-16 17:00 | disposition home or self-care (01) ==
PROVIDERS: Emergency Provider Nurse Practitioner
DX: Z32.02 Encounter for pregnancy test, result negative (principal); F17.290 Nicotine dependence, other tobacco product, uncomplicated
CPT/HCPCS: 84703; 99212; G0463

== ENCOUNTER 2022-11-11 20:29 | Emergency (ER) | payer OTHER, SELFPAY ==
[2022-11-11 20:30] VITALS: BP 161/71; PULSE 118; RESP 20; TEMP 36.8; O2SAT 97; BMI 41.5
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
[2022-11-11 20:58] VITALS: BP 157/74; PULSE 101; RESP 16; TEMP 36.8; O2SAT 97
== END 2022-11-11 21:20 | disposition home or self-care (01) ==
PROVIDERS: Emergency Provider Emergency Medicine
DX: R51.9 Headache, unspecified (principal); Y04.8XXA Assault by other bodily force, initial encounter; F17.290 Nicotine dependence, other tobacco product, uncomplicated
CPT/HCPCS: 99283

== ENCOUNTER 2022-12-17 10:15 | Emergency (ER) | payer OTHER, SELFPAY ==
[2022-12-17 10:15] VITALS: BP 146/72; PULSE 54; RESP 16; TEMP 36.8; O2SAT 98; BMI 38.2
--- NOTE | 2022-12-17 10:39 | XR_ITS ---
FINAL REPORT CLINICAL HISTORY: Left foot pain FINDINGS: LEFT FOOT Three views demonstrate no acute fracture or dislocation. There is medial prominence of the tarsal navicular which is probably developmental. The joint spaces appear normal. No acute soft tissue abnormality is seen. IMPRESSION: No acute bony abnormality. Reviewed, Interpreted and Dictated by Wyatt Hurtado MD Transcribed by Sarika Vargas Authenticated and [facility]
--- NOTE | 2022-12-17 10:39 | XR_ITS ---
FINAL REPORT CLINICAL HISTORY: Left ankle pain FINDINGS: LEFT ANKLE Three views demonstrate no acute fracture or dislocation. The ankle mortise is intact. There is mild soft tissue swelling. IMPRESSION: Mild soft tissue swelling with no acute bony abnormality. Reviewed, Interpreted and Dictated by Wyatt Hurtado MD Transcribed by Sarika Vargas Authenticated and [facility]
--- NOTE | 2022-12-17 11:17 | EXP.UTC ---
Discharge Plan Disposition Patient Disposition: Home, Self-Care Condition: Good Prescriptions Prescriptions: No Action azithromycin 250 mg tablet See Rx Instructions PO .COMPLEX Qty: 6 0RF Rx Instructions: For 250 mg dose pack: take 500 mg today (day 1), then 250 mg for 4 days (days 2-5) PO Classic 28 mg iron- 800 mcg tablet 1 tab PO DAILY Qty: 30 11RF Referrals Follow up/Referrals: Provider,Referral, MD [Primary Care Provider] - See instructions Activity Restrictions/Add. Instructions Additional Instructions/Restrictions: *weight bearing as tolerated *RICE, Rest the extremity, Ice 15-20 minutes 3-4 times daily, Compress- wear the erik wrap as discussed as much as possible to help reduce swelling and pain, Elevate the extremity when at rest *Erik wrap is for support and help control swelling, use it except in the shower. Be sure that is not to tight but not to loose either *Elevate when resting? *Ibuprofen 600-800mg every 6-8 hours as needed for pain an inflammation. If need something more can take Tylenol in between doses of Ibuprofen to help Immediately follow up with your family doctor for new or worsening of symptoms, or no noticeable improvement over the next 3-5 days Clinical Impressions Clinical Impression: Ankle sprain Qualifiers: Encounter type: initial encounter Involved ligament of ankle: unspecified ligament Laterality: left Qualified Code(s): S93.402A - Sprain of unspecified ligament of left ankle, initial encounter Stand Alone Forms Stand Alone Forms: Work/School Release Instructions Patient Instructions: How To Perform RICE (Rest, Ice, Compress, Elevate), How to Use Crutches, DI for Ankle Sprain Discharge ED Provider: Jacqueline Aguirre [facility] General Stated complaint: left ankle pain and swelling Mode of Arrival: Ambulatory Source of Information: Patient Limitations: No Limitations Time Seen by Provider: 12/17/22 10:40 Description of Symptoms (Recalled from Triage Doc. by RN): Patient reports falling down yesterday and injuring her left ankle. HEENT Symptoms (Recalled from RN notes): No Resp Symptoms (Recalled from RN notes): No Skin Symptoms (Recalled from RN notes): No MS Symptoms (Recalled from RN notes): Yes Functional Status (Recalled from RN notes): wnl History of Present Illness Provider Complaint: Patient states that she was walking down the steps yesterday when she miss stepped and rolled her left ankle States that she has been having pain and swelling in her ankle and foot ever since State that she got up this morning to go to work and she wasnt able to bear weight on it so she came in to get it checked Related Data Previous Rx's Medication Instructions Recorded vits no.126-ferrous fum 1 tab PO DAILY #30 tabs 03/19/22 28 mg iron-folic acid 800 mcg tablet (Classic ) azithromycin 250 mg tablet See Rx Instructions PO .COMPLEX #6 07/01/22 tabs Allergies Allergy/AdvReac Type Severity Reaction Status Date / Time amoxicillin Allergy Verified 07/01/22 10:08 Worker's Comp Is this a Worker's Comp case?: No [facility] Disclaimer: The information contained in this section may have been updated after the patient was seen, as this information can be updated by other users. Medical History (Updated 12/17/22 @ 11:53 by Jacqueline Aguirre APRN) Acute bronchitis Amenorrhea Conjunctivitis Contact dermatitis Dog bite of right thigh Encounter for preconception consultation Gastroenteritis Muscle spasm of calf Nausea & vomiting Need for Tdap vaccination Patient left without being seen Pharyngitis Rash Right lower quadrant abdominal pain Sinusitis Sore throat Sore throat (viral) Sunburn URI (upper respiratory infection) Urticaria Viral pharyngitis Viral syndrome Viral upper respiratory illness Social History Smoking Status: Current every day smoker tobacco type: e-
[2022-12-17 12:04] VITALS: BP 146/72; PULSE 54; RESP 16; TEMP 36.8; O2SAT 98
== END 2022-12-17 12:05 | disposition home or self-care (01) ==
PROVIDERS: Emergency Provider Nurse Practitioner
DX: S93.402A Sprain of unspecified ligament of left ankle, initial encounter (principal); F17.290 Nicotine dependence, other tobacco product, uncomplicated; W10.8XXA Fall (on) (from) other stairs and steps, initial encounter
CPT/HCPCS: 73610; 73630; 99212; 99214; G0463